=== PATIENT | male | born 1980 | race Caucasian/White ===

== ENCOUNTER 2023-06-30 13:35 | Emergency (ER) | payer OTHER ==
[~2023-06-30] VITALS: Ht 172.7 cm; Wt 83.9 kg
[~2023-06-30 13:35] MED LIST: HYDROCODONE BIT1 T11 PO; Motrin,Rufen800 MG PO
[2023-06-30 14:44] LABS: BILIRUBIN Negative (Negative); BLOOD Negative (Negative); CLARITY Clear (Clear); COLOR Yellow (Yellow); GLUCOSE Negative (Negative); KETONE Negative (Negative); LEUKO ESTERASE 3+ (Negative); NITRITE Negative (Negative); PH 6.5 (4.5-8.0); SPECIFIC GRAVITY 1.015 (1.001-1.030)
[2023-06-30 14:53] LABS: BACTERIA 1+; RBC 0-2 rbc/hpf (0-2); WBC 21-30 wbc/hpf (0-5)
== END 2023-06-30 16:48 | disposition left against medical advice (07) ==
LOC: ED 13:35
PROVIDERS: Physician Assistant Medical
DX: Z00.00 Encounter for general adult medical examination without abnormal findings (principal); Z53.21 Procedure and treatment not carried out due to patient leaving prior to being seen by health care provider; Z79.899 Other long term (current) drug therapy

== ENCOUNTER 2023-07-01 00:13 | Emergency (ER) | payer OTHER ==
[~2023-07-01] VITALS: Ht 177.8 cm; Wt 81.6 kg
[2023-07-01] MEDS ORDERED: AZITHROMYCIN 250 MG TAB PO ONE (00:25)
== END 2023-07-01 00:36 | disposition home or self-care (01) ==
LOC: ED 00:13
DX: A64 Unspecified sexually transmitted disease (principal)